=== PATIENT | female | born 1940 | race Caucasian/White ===

== ENCOUNTER → 2024-02-11 | Day surgery (SDC) | payer MEDICARE, OTHER ==
[2024-02-10 10:56] LABS: BASOPHILS # (AUTO) 0.1 (0.0-0.1); BASOPHILS % 0.6 % (0.0-1.0); EOSINOPHILS # (AUTO) 0.5 (0.0-0.4); EOSINOPHILS % 4.8 % (0.0-6.0); HEMATOCRIT 36.6 % (34.2-44.1); HEMOGLOBIN 11.5 g/dL (12.0-16.0); LYMPHOCYTES # (AUTO) 1.2 (1.0-3.2); LYMPHOCYTES % 12.7 % (18.0-39.1); MEAN CORPUSCULAR HEMOGLOBIN 28.7 pg (28-32); MEAN CORPUSCULAR HGB CONC 31.4 g/dL (31-35); MEAN CORPUSCULAR VOLUME 91.3 fL (81-99); MONOCYTES # (AUTO) 0.6 (0.2-0.8); MONOCYTES % 5.6 % (4.4-11.3); NEUTROPHILS # (AUTO) 7.4 (2.1-6.9); NEUTROPHILS % 75.7 % (38.7-80.0); PLATELET COUNT 241 x10e3/uL (140-360); RED BLOOD COUNT 4.01 x10e6/uL (3.6-5.1); RED CELL DISTRIBUTION WIDTH 14.1 % (11.7-14.4); WHITE BLOOD COUNT 9.75 x10e3/uL (4.8-10.8)
[2024-02-10 11:24] LABS: ALBUMIN 4.1 g/dL (3.5-5.0); ANION GAP 21.1 mmol/L (8-16); BILIRUBIN,TOTAL 0.4 mg/dL (0.2-1.2); CALCIUM 10.1 mg/dL (8.4-10.2); CREATININE, SERUM 1.97 mg/dL (0.57-1.11); POTASSIUM 4.1 mmol/L (3.5-5.1); TOTAL PROTEIN 8.3 g/dL (6.5-8.1)
[~2024-02-11] MED LIST: ABILIFY5 MG PO; ACETAMINOPHEN 1000 MG/100 ML 100 ML IV ONE; AMLODIPINE BESY10 MG PO; ASPIRIN81 MG PO; ATORVASTATIN CA20 MG PO; CETIRIZINE HCL10 MG PO; CIPRO250 MG PO; CLONIDINE HCL0.1 MG PO; CLOPIDOGREL75 MG PO; CYMBALTA30 MG PO; DEXAMETHASONE SOD PHOS INJ 4 MG/ML SDV ONE; DILTIAZEM 24HR180 MG PO; ECHINACEA80 MG PO; FAMOTIDINE20 MG PO; FENTANYL CITRATE/PF 100MCG/2 ML INJ ONE; FUROSEMIDE40 MG PO; GLIPIZIDE5 MG PO; LIDOCAINE HCL 2% LOCAL INJ 5 ML SDV VIAL INJ ONE; METHENAMINE HIPP1 GM PO; METOPROLOL SUCC50 MG PO; MULTI VIT PO; MULTI-VITAMIN1 EACH PO; MYRBETRIQ25 MG PO; ONDANSETRON HCL INJ 2MG/ML 2ML 2 MG/ML VIAL ONE; PANTOPRAZOLE SO20 MG PO; PRAVASTATIN SOD20 MG PO; PROPOFOL IV EMULSION 10 MG/ML 20 ML VIAL ONE; SEVOFLURANE INHAL SOLN 250 ML PEN BTL ONE; TRAMADOL HCL50 M1 PO; TRESIBA FL100 UNIT/1 SC; ULTRAM 50MG50 MG PO; VITAMIN C1000 MG PO; VITAMIN D31250 MCG PEG; Z MELATONIN PO; Z.0.ENALAPRIL MALEA2 PO; Z.0.HYDROCHLOROTHIA2 PO; Z.0.METOPROLOL TART2 PO; Z.0.METRONIDAZOLE500 PO; Z.2.METFORMIN HCL500 PO; [UNRECOGNIZED DRUG - OTHER]; [UNRECOGNIZED DRUG - OTHER] PO
[2024-02-11] MEDS: GENTAMICIN 80MG/NS 100 ML 200 ML IV ONE (06:24)
[2024-02-11] MEDS: LACTATED RINGER'S 1,000 ML ONE (06:24)
[2024-02-11] MEDS: PHENAZOPYRIDINE HCL 100 MG TAB ONE (10:39)
[2024-02-11 11:10] VITALS: BP 148/56; PULSE 71; RESP 18; O2SAT 97
== END | disposition home or self-care (01) ==
LOC: OR 05:40
PROVIDERS: ATTEND Urology
DX: N13.5 Crossing vessel and stricture of ureter without hydronephrosis (principal); N39.0 Urinary tract infection, site not specified; N13.30 Unspecified hydronephrosis; N81.10 Cystocele, unspecified; N81.6 Rectocele; N95.2 Postmenopausal atrophic vaginitis; I11.0 Hypertensive heart disease with heart failure; I50.9 Heart failure, unspecified; E11.9 Type 2 diabetes mellitus without complications; E66.01 Morbid (severe) obesity due to excess calories; Z88.6 Allergy status to analgesic agent; Z88.1 Allergy status to other antibiotic agents; Z88.0 Allergy status to penicillin; Z88.8 Allergy status to other drugs, medicaments and biological substances; Z01.810 Encounter for preprocedural cardiovascular examination; Z01.812 Encounter for preprocedural laboratory examination; Z01.818 Encounter for other preprocedural examination; Z79.02 Long term (current) use of antithrombotics/antiplatelets; Z79.82 Long term (current) use of aspirin; Z79.84 Long term (current) use of oral hypoglycemic drugs; Z79.4 Long term (current) use of insulin; Z79.899 Other long term (current) drug therapy; Z68.41 Body mass index [BMI] 40.0-44.9, adult; Z86.73 Personal history of transient ischemic attack (TIA), and cerebral infarction without residual deficits
CPT/HCPCS: 36415; 52351; 71046; 74420; 80053; 84550; 85025; 87086; 93005; C1758 ×2; C1769; J0131; J1100; J1580; J2003; J2405; J2704; J3010; J7121

== ENCOUNTER 2024-04-18 10:08 | Inpatient (IN) | payer MEDICARE ==
[~2024-04-18] VITALS: Ht 157.5 cm; Wt 91.2 kg
[~2024-04-18 10:08] MED LIST changes: -ACETAMINOPHEN 1000 MG/100 ML 100 ML IV ONE; -DEXAMETHASONE SOD PHOS INJ 4 MG/ML SDV ONE; -FENTANYL CITRATE/PF 100MCG/2 ML INJ ONE; -LIDOCAINE HCL 2% LOCAL INJ 5 ML SDV VIAL INJ ONE; -ONDANSETRON HCL INJ 2MG/ML 2ML 2 MG/ML VIAL ONE; -PROPOFOL IV EMULSION 10 MG/ML 20 ML VIAL ONE; -SEVOFLURANE INHAL SOLN 250 ML PEN BTL ONE
[2024-04-18 10:16] VITALS: TEMP 98.8
[2024-04-18 11:12] LABS: BASOPHILS % 0.3 % (0.0-1.0); EOSINOPHILS # (AUTO) 0.1 (0.0-0.4); EOSINOPHILS % 1.1 % (0.0-6.0); HEMATOCRIT 34.9 % (34.2-44.1); HEMOGLOBIN 11.4 g/dL (12.0-16.0); LYMPHOCYTES # (AUTO) 0.9 (1.0-3.2); LYMPHOCYTES % 7.5 % (18.0-39.1); MEAN CORPUSCULAR HEMOGLOBIN 29.6 pg (28-32); MEAN CORPUSCULAR HGB CONC 32.7 g/dL (31-35); MEAN CORPUSCULAR VOLUME 90.6 fL (81-99); MONOCYTES # (AUTO) 0.8 (0.2-0.8); MONOCYTES % 6.3 % (4.4-11.3); NEUTROPHILS # (AUTO) 10.4 (2.1-6.9); NEUTROPHILS % 84.4 % (38.7-80.0); PLATELET COUNT 213 x10e3/uL (140-360); RED BLOOD COUNT 3.85 x10e6/uL (3.6-5.1); RED CELL DISTRIBUTION WIDTH 15.5 % (11.7-14.4); WHITE BLOOD COUNT 12.27 x10e3/uL (4.8-10.8)
[2024-04-18] MEDS: SODIUM CHLORIDE 0.9% 1000ML 1,000 ML IV STA ×2 (11:20→12:40)
[2024-04-18] MEDS: ONDANSETRON HCL INJ 2MG/ML 2ML 2 MG/ML VIAL IV STA (11:20)
[2024-04-18 11:29] LABS: INR 1.06; PROTHROMBIN TIME 14.4 seconds (11.9-14.5)
[2024-04-18 11:30] LABS: PARTIAL THROMBOPLASTIN TIME 30.4 seconds (23.8-35.5)
[2024-04-18 11:37] LABS: ALBUMIN 3.6 g/dL (3.5-5.0); ALBUMIN/GLOBULIN RATIO 0.8 (0.8-2.0); ANION GAP 22.2 mmol/L (8-16); BILIRUBIN,TOTAL 0.7 mg/dL (0.2-1.2); CALCIUM 10.6 mg/dL (8.4-10.2); CREATININE, SERUM 1.98 mg/dL (0.57-1.11); MAGNESIUM 1.4 MG/DL (1.3-2.1); TOTAL PROTEIN 8.4 g/dL (6.5-8.1)
[2024-04-18 11:38] LABS: B-TYPE NATRIURETIC PEPTIDE2 11.7 pg/mL (0-100)
[2024-04-18 11:39] LABS: POTASSIUM 3.2 mmol/L (3.5-5.1)
[2024-04-18 11:44] LABS: TROPONIN I 0.022 ng/mL (0-0.300)
[2024-04-18 12:25] LABS: CORONAVIRUS COVID-19 AG NEGATIVE (NEGATIVE); INFLUENZA A AG NEGATIVE (NEGATIVE); INFLUENZA B AG NEGATIVE (NEGATIVE)
[2024-04-18 12:29] LABS: CLARITY,URINE CLOUDY (CLEAR); COLOR,URINE YELLOW (YELLOW); GLUCOSE, URINE NEGATIVE (NEGATIVE); KETONES,URINE NEGATIVE (NEGATIVE); LEUKOCYTE ESTERASE ,URINE SMALL (NEGATIVE); NITRITE,URINE NEGATIVE (NEGATIVE); PH,URINE 5.5 (5 - 7); PROTEIN,URINE DIPSTICK >=300 (NEGATIVE); URINE UROBILINOGEN 0.2 mg/dL (0.2 - 1)
[2024-04-18 12:30] LABS: BACTERIA,URINE MODERATE /HPF; BILIRUBIN,URINE NEGATIVE (NEGATIVE); EPITHELIAL CELLS,URINE MODERATE /LPF; RBC,URINE 21-50 /HPF (0-5); WBC,URINE (MAN) >50 /HPF (0-5)
[2024-04-18] MEDS ORDERED: LEVOFLOXACIN 250MG/D5W 50ML 50 ML IV SCH (12:30)
[2024-04-18] MEDS: MEROPENEM 1 GM in SODIUM CHLORIDE 0.9% 100 ML IV ONE (12:40)
[2024-04-18 12:57] VITALS: PULSE 109; RESP 16
[2024-04-18] MEDS: SODIUM CHLORIDE 0.9% 1000ML 1,000 ML IV SCH (14:26)
[2024-04-18 18:00] VITALS: BP_SYST 147; BP_SYST 148; BP_DIAS 68; PULSE 118; RESP 20; TEMP 97.6; O2SAT 93; O2SAT 94
[2024-04-18 20:42] VITALS: BP 156/69; PULSE 116; RESP 20; TEMP 99; O2SAT 97
[2024-04-18] MEDS: LEVOFLOXACIN 250MG/D5W 50ML 50 ML IV SCH (21:01)
[2024-04-18] MEDS ORDERED: NITROFURANTOIN50 MG PO (23:29)
[2024-04-18] MEDS ORDERED: ALLOPURINOL100 MG PO (23:29)
[2024-04-18] MEDS ORDERED: METOPROLOL SUCC50 MG PO (23:29)
[2024-04-19] VITALS (8 sets, daily range): BP systolic 105–156; BP diastolic 55–69; PULSE 67–127; RESP 16–20; TEMP 97.5–99.3; O2SAT 96–98
[2024-04-19] MEDS: AMLODIPINE BESYLATE 10 MG TAB PO SCH (02:11)
[2024-04-19] MEDS: CLONIDINE HCL 0.1 MG TAB PO SCH (02:12)
[2024-04-19] MEDS: METOPROLOL SUCCINATE 50 MG TAB XL PO ONE (02:13)
[2024-04-19 06:36] LABS: BASOPHILS % 0.4 % (0.0-1.0); EOSINOPHILS # (AUTO) 0.1 (0.0-0.4); EOSINOPHILS % 1.3 % (0.0-6.0); HEMATOCRIT 31.2 % (34.2-44.1); HEMOGLOBIN 9.8 g/dL (12.0-16.0); LYMPHOCYTES % 13.5 % (18.0-39.1); MEAN CORPUSCULAR HEMOGLOBIN 30.2 pg (28-32); MEAN CORPUSCULAR HGB CONC 31.4 g/dL (31-35); MONOCYTES # (AUTO) 0.7 (0.2-0.8); MONOCYTES % 9.6 % (4.4-11.3); NEUTROPHILS # (AUTO) 5.7 (2.1-6.9); NEUTROPHILS % 74.7 % (38.7-80.0); PLATELET COUNT 163 x10e3/uL (140-360); RED BLOOD COUNT 3.25 x10e6/uL (3.6-5.1); RED CELL DISTRIBUTION WIDTH 15.2 % (11.7-14.4); WHITE BLOOD COUNT 7.57 x10e3/uL (4.8-10.8)
[2024-04-19 07:21] LABS: ALBUMIN 2.6 g/dL (3.5-5.0); ALBUMIN/GLOBULIN RATIO 0.7 (0.8-2.0); ANION GAP 16.4 mmol/L (8-16); BILIRUBIN,TOTAL 0.4 mg/dL (0.2-1.2); CALCIUM 9.5 mg/dL (8.4-10.2); CREATININE, SERUM 1.45 mg/dL (0.57-1.11); TOTAL PROTEIN 6.4 g/dL (6.5-8.1)
[2024-04-19 07:22] LABS: POTASSIUM 3.4 mmol/L (3.5-5.1)
[2024-04-19] MEDS: GLIPIZIDE 5 MG TAB PO SCH (08:44)
[2024-04-19] MEDS: CLOPIDOGREL BISULFATE 75 MG TAB PO SCH (08:44)
[2024-04-19] MEDS: DULOXETINE HCL 30 MG DELAYED RELEASE PO SCH (08:44)
[2024-04-19] MEDS: ALLOPURINOL 100 MG TAB PO SCH (08:44)
[2024-04-19] MEDS: HYDROCHLOROTHIAZIDE 25 MG TAB PO SCH (08:44)
[2024-04-19] MEDS: LORATADINE 10 MG TAB PO SCH (08:45)
[2024-04-19] MEDS: FUROSEMIDE 40 MG TAB PO SCH (08:47)
[2024-04-19] MEDS ORDERED: FAMOTIDINE 20 MG TAB PO SCH (09:00)
[2024-04-19] MEDS ORDERED: NITROFURANTOIN 50 MG CAP PO SCH (09:00)
[2024-04-19] MEDS: INSULIN DEGLUDEC 35 UNIT SQ SCH (09:00)
[2024-04-19] MEDS: NON-FORMULARY MEDICATION (Mirabegron (Myrbetriq) 50 MG) PO SCH (09:00)
[2024-04-19] MEDS ORDERED: PANTOPRAZOLE SODIUM 20 MG TABLET.DR PO SCH (09:00)
[2024-04-19] MEDS ORDERED: DEXTROSE 50% SYRINGE 50 ML IV PRN (11:00)
[2024-04-19 11:24] LABS: CHOL/HDL RATIO 2.8 (3.0-3.6)
[2024-04-19] MEDS: FAMOTIDINE 20 MG TAB PO SCH (11:33)
[2024-04-19] MEDS: INSULIN REGULAR, HUMAN 100 UNIT/1 ML SQ SCH (12:24)
[2024-04-19] MEDS: LEVOFLOXACIN 250MG/D5W 50ML 50 ML IV SCH (20:39)
[2024-04-19] MEDS: METOPROLOL SUCCINATE 50 MG TAB XL PO SCH (20:43)
[2024-04-19] MEDS: ATORVASTATIN 40 MG TAB PO SCH (20:44)
[2024-04-19] MEDS: TRAMADOL HCL 50 MG TAB PO PRN (20:45)
[2024-04-19] MEDS: TRAMADOL HCL 50 MG TAB PO ONE (23:53)
[2024-04-20] VITALS: BP 126/56; PULSE 78; RESP 20; TEMP 99.1; O2SAT 99
[2024-04-20 04:00] VITALS: BP 131/61; PULSE 92; RESP 20; TEMP 99.7; O2SAT 97
[2024-04-20] MEDS: TRAMADOL HCL 50 MG TAB PO PRN (05:42)
[2024-04-20 06:42] LABS: BASOPHILS % 0.3 % (0.0-1.0); EOSINOPHILS # (AUTO) 0.2 (0.0-0.4); EOSINOPHILS % 2.6 % (0.0-6.0); HEMATOCRIT 28.5 % (34.2-44.1); HEMOGLOBIN 9.1 g/dL (12.0-16.0); LYMPHOCYTES % 11.1 % (18.0-39.1); MEAN CORPUSCULAR HEMOGLOBIN 29.8 pg (28-32); MEAN CORPUSCULAR HGB CONC 31.9 g/dL (31-35); MEAN CORPUSCULAR VOLUME 93.4 fL (81-99); MONOCYTES # (AUTO) 0.8 (0.2-0.8); NEUTROPHILS # (AUTO) 7.3 (2.1-6.9); NEUTROPHILS % 77.4 % (38.7-80.0); PLATELET COUNT 168 x10e3/uL (140-360); RED BLOOD COUNT 3.05 x10e6/uL (3.6-5.1); RED CELL DISTRIBUTION WIDTH 14.9 % (11.7-14.4); WHITE BLOOD COUNT 9.38 x10e3/uL (4.8-10.8)
[2024-04-20 07:18] LABS: ANION GAP 15.2 mmol/L (8-16); CALCIUM 9.1 mg/dL (8.4-10.2); CREATININE, SERUM 1.38 mg/dL (0.57-1.11)
[2024-04-20 07:21] LABS: POTASSIUM 3.2 mmol/L (3.5-5.1)
[2024-04-20 08:04] VITALS: BP 135/55; PULSE 91; RESP 18; TEMP 97.9; O2SAT 95
[2024-04-20 08:13] VITALS: BP 135/55; PULSE 91; RESP 18; TEMP 97.9; O2SAT 95
[2024-04-20 11:43] VITALS: BP 135/61; PULSE 75; RESP 16; TEMP 98.8; O2SAT 100
[2024-04-20] MEDS: CYCLOBENZAPRINE HCL 10 MG TAB PO SCH (13:48)
[2024-04-20] MEDS ORDERED: FUROSEMIDE INJ 10 MG/ML 4 ML VIAL ONE (15:21)
[2024-04-20 20:00] VITALS: BP 143/51; PULSE 86; RESP 18; TEMP 98.9; O2SAT 95
[2024-04-20] MEDS: METOPROLOL SUCCINATE 50 MG TAB XL PO SCH (21:03)
[2024-04-21 04:00] VITALS: BP 143/57; PULSE 92; RESP 18; TEMP 97.1; O2SAT 100
[2024-04-21 06:31] LABS: BASOPHILS % 0.2 % (0.0-1.0); EOSINOPHILS # (AUTO) 0.2 (0.0-0.4); HEMATOCRIT 28.3 % (34.2-44.1); HEMOGLOBIN 9.2 g/dL (12.0-16.0); LYMPHOCYTES # (AUTO) 1.1 (1.0-3.2); LYMPHOCYTES % 13.7 % (18.0-39.1); MEAN CORPUSCULAR HEMOGLOBIN 29.4 pg (28-32); MEAN CORPUSCULAR HGB CONC 32.5 g/dL (31-35); MEAN CORPUSCULAR VOLUME 90.4 fL (81-99); MONOCYTES # (AUTO) 0.6 (0.2-0.8); MONOCYTES % 7.6 % (4.4-11.3); NEUTROPHILS % 74.8 % (38.7-80.0); PLATELET COUNT 171 x10e3/uL (140-360); RED BLOOD COUNT 3.13 x10e6/uL (3.6-5.1); RED CELL DISTRIBUTION WIDTH 14.6 % (11.7-14.4); WHITE BLOOD COUNT 8.05 x10e3/uL (4.8-10.8)
[2024-04-21 07:01] LABS: ANION GAP 18.1 mmol/L (8-16); CALCIUM 9.3 mg/dL (8.4-10.2); CREATININE, SERUM 1.41 mg/dL (0.57-1.11)
[2024-04-21 07:04] LABS: POTASSIUM 3.1 mmol/L (3.5-5.1)
[2024-04-21] MEDS: SODIUM CHLORIDE 0.45% 1,000 ML IV SCH (09:00)
[2024-04-21 10:08] VITALS: BP 143/57; PULSE 80; RESP 16; TEMP 98.2; O2SAT 95
[2024-04-21 19:09] VITALS: BP 122/58; PULSE 88; RESP 16; TEMP 99.3; O2SAT 98
[2024-04-21 20:24] VITALS: BP 141/60; PULSE 98; RESP 18; TEMP 99.3; O2SAT 100
[2024-04-21 21:00] VITALS: BP 141/60; PULSE 98; RESP 18; TEMP 99.3; O2SAT 100
[2024-04-21] MEDS: ONDANSETRON HCL INJ 2MG/ML 2ML 2 MG/ML VIAL IV PRN (23:50)
[2024-04-22] VITALS (7 sets, daily range): BP systolic 124–149; BP diastolic 53–74; PULSE 80–97; RESP 17–20; TEMP 97.5–99.4; O2SAT 95–99
[2024-04-22 08:36] LABS: CALCIUM 9.5 mg/dL (8.4-10.2); CREATININE, SERUM 1.63 mg/dL (0.57-1.11)
[2024-04-22] MEDS ORDERED: LEVOFLOXACIN250 MG PO (11:23)
[2024-04-22] MEDS ORDERED: TOPROL XL50 MG PO (11:23)
[2024-04-22] MEDS ORDERED: CYCLOBENZAPRINE10 MG PO (11:23)
[2024-04-22] MEDS ORDERED: FAMOTIDINE20 MG PO (11:23)
[2024-04-22] MEDS: POTASSIUM CHLORIDE 20 MEQ TAB CR PO STA (11:49)
[2024-04-23] VITALS (8 sets, daily range): BP systolic 116–141; BP diastolic 53–77; PULSE 87–97; RESP 16–22; TEMP 99–99.4; O2SAT 95–100
[2024-04-23 06:58] LABS: CALCIUM 9.3 mg/dL (8.4-10.2); CREATININE, SERUM 1.66 mg/dL (0.57-1.11)
[2024-04-23 07:02] LABS: POTASSIUM 3.3 mmol/L (3.5-5.1)
[2024-04-23] MEDS: SENNOSIDES 8.6 MG TAB PO SCH (07:11)
[2024-04-23] MEDS: DOCUSATE SODIUM 100 MG CAP PO SCH (07:11)
[2024-04-23 07:21] LABS: ANION GAP 17.3 mmol/L (8-16)
[2024-04-23 19:58] LABS: BASOPHILS % 0.2 % (0.0-1.0); EOSINOPHILS # (AUTO) 0.2 (0.0-0.4); EOSINOPHILS % 1.9 % (0.0-6.0); LYMPHOCYTES # (AUTO) 0.6 (1.0-3.2); MEAN CORPUSCULAR HEMOGLOBIN 29.9 pg (28-32); MEAN CORPUSCULAR HGB CONC 33.3 g/dL (31-35); MEAN CORPUSCULAR VOLUME 89.6 fL (81-99); MONOCYTES # (AUTO) 0.7 (0.2-0.8); MONOCYTES % 6.3 % (4.4-11.3); NEUTROPHILS # (AUTO) 9.7 (2.1-6.9); NEUTROPHILS % 85.7 % (38.7-80.0); PLATELET COUNT 186 x10e3/uL (140-360); RED BLOOD COUNT 2.68 x10e6/uL (3.6-5.1); RED CELL DISTRIBUTION WIDTH 14.4 % (11.7-14.4); WHITE BLOOD COUNT 11.35 x10e3/uL (4.8-10.8)
[2024-04-23 19:59] LABS: BILIRUBIN,URINE NEGATIVE (NEGATIVE); CLARITY,URINE CLEAR (CLEAR); COLOR,URINE STRAW (YELLOW); GLUCOSE, URINE NEGATIVE (NEGATIVE); KETONES,URINE NEGATIVE (NEGATIVE); LEUKOCYTE ESTERASE ,URINE NEGATIVE (NEGATIVE); NITRITE,URINE NEGATIVE (NEGATIVE); PH,URINE 5.5 (5 - 7); PROTEIN,URINE DIPSTICK 2+ (NEGATIVE); URINE UROBILINOGEN 0.2 mg/dL (0.2 - 1)
[2024-04-23 20:19] LABS: ANION GAP 15.2 mmol/L (8-16); CREATININE, SERUM 1.68 mg/dL (0.57-1.11)
[2024-04-23 20:21] LABS: POTASSIUM 3.2 mmol/L (3.5-5.1)
[2024-04-23 20:26] LABS: EPITHELIAL CELLS,URINE FEW /LPF; HYALINE CASTS 0-1 (0-1); WBC,URINE (MAN) 0-5 /HPF (0-5)
[2024-04-23] MEDS ORDERED: LORAZEPAM INJ 2 MG/ML VIAL IV PRN (21:00)
[2024-04-24] VITALS (7 sets, daily range): BP systolic 111–145; BP diastolic 46–98; PULSE 83–95; RESP 18–21; TEMP 98.6–99.5; O2SAT 95–100
[2024-04-24 06:53] LABS: HEMATOCRIT 24.4 % (34.2-44.1)
[2024-04-24] MEDS: ACETAMINOPHEN 325 MG TAB PO PRN (16:57)
[2024-04-25] VITALS (7 sets, daily range): BP systolic 128–158; BP diastolic 58–115; PULSE 88–103; RESP 18–20; TEMP 97.3–100.1; O2SAT 96–99
[2024-04-25 06:57] LABS: BASOPHILS % 0.3 % (0.0-1.0); EOSINOPHILS # (AUTO) 0.2 (0.0-0.4); EOSINOPHILS % 1.4 % (0.0-6.0); HEMATOCRIT 27.2 % (34.2-44.1); LYMPHOCYTES # (AUTO) 0.5 (1.0-3.2); LYMPHOCYTES % 4.9 % (18.0-39.1); MEAN CORPUSCULAR HEMOGLOBIN 29.7 pg (28-32); MEAN CORPUSCULAR HGB CONC 33.1 g/dL (31-35); MEAN CORPUSCULAR VOLUME 89.8 fL (81-99); MONOCYTES # (AUTO) 0.8 (0.2-0.8); MONOCYTES % 6.9 % (4.4-11.3); NEUTROPHILS # (AUTO) 9.4 (2.1-6.9); PLATELET COUNT 261 x10e3/uL (140-360); RED BLOOD COUNT 3.03 x10e6/uL (3.6-5.1); RED CELL DISTRIBUTION WIDTH 14.2 % (11.7-14.4)
[2024-04-25 07:28] LABS: ANION GAP 16.9 mmol/L (8-16); CALCIUM 9.7 mg/dL (8.4-10.2); CREATININE, SERUM 1.5 mg/dL (0.57-1.11)
[2024-04-25 07:29] LABS: POTASSIUM 2.9 mmol/L (3.5-5.1)
[2024-04-25] MEDS: DULOXETINE HCL 30 MG DELAYED RELEASE PO SCH (10:34)
[2024-04-25] MEDS: POTASSIUM CHLORIDE 10MEQ EA PO ONE (11:01)
[2024-04-25] MEDS: QUETIAPINE FUMARATE 25 MG TAB PO SCH ×2 (11:01→21:21)
[2024-04-25] MEDS: MECLIZINE HCL 12.5 MG TAB PO SCH (21:22)
[2024-04-25] MEDS: TEMAZEPAM 15 MG CAP PO SCH (21:23)
[2024-04-26] VITALS: BP 149/58; PULSE 87; RESP 18; TEMP 97.9; O2SAT 95
[2024-04-26 04:00] VITALS: BP 137/89; PULSE 75; RESP 18; TEMP 98; O2SAT 96
[2024-04-26 06:42] LABS: BASOPHILS % 0.3 % (0.0-1.0); EOSINOPHILS # (AUTO) 0.2 (0.0-0.4); EOSINOPHILS % 2.3 % (0.0-6.0); HEMATOCRIT 26.2 % (34.2-44.1); HEMOGLOBIN 8.6 g/dL (12.0-16.0); LYMPHOCYTES # (AUTO) 0.9 (1.0-3.2); LYMPHOCYTES % 11.4 % (18.0-39.1); MEAN CORPUSCULAR HGB CONC 32.8 g/dL (31-35); MEAN CORPUSCULAR VOLUME 88.2 fL (81-99); MONOCYTES # (AUTO) 0.6 (0.2-0.8); MONOCYTES % 7.4 % (4.4-11.3); NEUTROPHILS % 77.2 % (38.7-80.0); PLATELET COUNT 269 x10e3/uL (140-360); RED BLOOD COUNT 2.97 x10e6/uL (3.6-5.1); RED CELL DISTRIBUTION WIDTH 14.5 % (11.7-14.4); WHITE BLOOD COUNT 7.79 x10e3/uL (4.8-10.8)
[2024-04-26 07:05] LABS: CALCIUM 9.9 mg/dL (8.4-10.2); CREATININE, SERUM 1.55 mg/dL (0.57-1.11)
[2024-04-26] MEDS ORDERED: SEROQUEL25 MG PO (07:45)
[2024-04-26] MEDS ORDERED: RESTORIL15 MG PO (07:45)
[2024-04-26] MEDS: QUETIAPINE FUMARATE 25 MG TAB PO SCH (09:00)
[2024-04-26 09:01] VITALS: BP 153/56; PULSE 99; RESP 20; TEMP 98.4; O2SAT 97
[2024-04-26] MEDS: PANTOPRAZOLE SOD 40 MG TABEC PO SCH (09:08)
[2024-04-26] MEDS: POTASSIUM CHLORIDE 10MEQ EA PO ONE (09:10)
[2024-04-26] MEDS ORDERED: ONDANSETRON HCL 4 MG ORAL DISINTEGRATING TAB PO PRN (10:00)
[2024-04-26 12:43] VITALS: BP 129/60; PULSE 92; RESP 18; TEMP 98.3; O2SAT 96
[2024-04-26 12:53] VITALS: BP 129/60; PULSE 92; RESP 18; TEMP 98.3; O2SAT 96
== END 2024-04-26 12:53 | DRG 698 ==
LOC: ER 10:12 → ERHOLD 13:35 → MED/SURG3 17:29
PROVIDERS: ADMIT Internal Medicine; ATTEND Internal Medicine
PROC: 3E0333Z Introduction of Anti-inflammatory into Peripheral Vein, Percutaneous Approach (ICD-10-PCS; principal; 2024-04-18)
DX: T83.593A Infection and inflammatory reaction due to other urinary stents, initial encounter (principal); A41.9 Sepsis, unspecified organism; R65.20 Severe sepsis without septic shock; G93.41 Metabolic encephalopathy; N17.9 Acute kidney failure, unspecified; N12 Tubulo-interstitial nephritis, not specified as acute or chronic; Z16.24 Resistance to multiple antibiotics; E11.22 Type 2 diabetes mellitus with diabetic chronic kidney disease; N18.30 Chronic kidney disease, stage 3 unspecified; N30.90 Cystitis, unspecified without hematuria; Z11.52 Encounter for screening for COVID-19; K59.00 Constipation, unspecified; R44.1 Visual hallucinations; N13.5 Crossing vessel and stricture of ureter without hydronephrosis; H81.10 Benign paroxysmal vertigo, unspecified ear; G47.00 Insomnia, unspecified; I12.9 Hypertensive chronic kidney disease with stage 1 through stage 4 chronic kidney disease, or unspecified chronic kidney disease; F32.A Depression, unspecified; M79.7 Fibromyalgia; Z98.62 Peripheral vascular angioplasty status; R53.81 Other malaise; R31.29 Other microscopic hematuria; B95.2 Enterococcus as the cause of diseases classified elsewhere; B96.1 Klebsiella pneumoniae [K. pneumoniae] as the cause of diseases classified elsewhere; E66.01 Morbid (severe) obesity due to excess calories; Z68.36 Body mass index [BMI] 36.0-36.9, adult; Z79.82 Long term (current) use of aspirin; Z79.4 Long term (current) use of insulin; Z79.02 Long term (current) use of antithrombotics/antiplatelets; Z79.84 Long term (current) use of oral hypoglycemic drugs; Z90.49 Acquired absence of other specified parts of digestive tract; Z90.710 Acquired absence of both cervix and uterus; Z96.0 Presence of urogenital implants; Z86.73 Personal history of transient ischemic attack (TIA), and cerebral infarction without residual deficits; Z88.0 Allergy status to penicillin; Z88.1 Allergy status to other antibiotic agents; Z88.5 Allergy status to narcotic agent; Z88.8 Allergy status to other drugs, medicaments and biological substances; Z91.018 Allergy to other foods; Z91.048 Other nonmedicinal substance allergy status; Z87.891 Personal history of nicotine dependence
CPT/HCPCS: 36415; 51700; 70450; 71045; 74176; 78708; 80048; 80053; 80061; 81001; 82140; 82550; 82948; 83036; 83605; 83735; 83880; 84484; 85014; 85018; 85025; 85610; 85730; 87040; 87086; 93005; 96372; 99252; 99284; A9562; J1940; J1956; J2185; J2405; J2470; J7030; J7050

== ENCOUNTER 2024-05-09 08:34 | Inpatient (IN) | payer MEDICARE ==
[~2024-05-09] VITALS: Ht 157.5 cm; Wt 91.2 kg
[~2024-05-09 08:34] MED LIST changes: +ALLOPURINOL100 MG PO; +CYCLOBENZAPRINE10 MG PO; +LEVOFLOXACIN250 MG PO; +NITROFURANTOIN50 MG PO; +RESTORIL15 MG PO; +SEROQUEL25 MG PO; +TOPROL XL50 MG PO
[2024-05-09 09:16] VITALS: PULSE 106; RESP 18; TEMP 98.9
[2024-05-09 09:34] LABS: BASOPHILS # (AUTO) 0.1 (0.0-0.1); BASOPHILS % 0.5 % (0.0-1.0); EOSINOPHILS # (AUTO) 0.2 (0.0-0.4); EOSINOPHILS % 2.1 % (0.0-6.0); HEMATOCRIT 34.3 % (34.2-44.1); HEMOGLOBIN 10.8 g/dL (12.0-16.0); LYMPHOCYTES % 8.9 % (18.0-39.1); MEAN CORPUSCULAR HEMOGLOBIN 29.5 pg (28-32); MEAN CORPUSCULAR HGB CONC 31.5 g/dL (31-35); MEAN CORPUSCULAR VOLUME 93.7 fL (81-99); MONOCYTES # (AUTO) 0.6 (0.2-0.8); MONOCYTES % 5.5 % (4.4-11.3); NEUTROPHILS # (AUTO) 9.5 (2.1-6.9); NEUTROPHILS % 82.5 % (38.7-80.0); PLATELET COUNT 297 x10e3/uL (140-360); RED BLOOD COUNT 3.66 x10e6/uL (3.6-5.1); RED CELL DISTRIBUTION WIDTH 15.2 % (11.7-14.4); WHITE BLOOD COUNT 11.48 x10e3/uL (4.8-10.8)
[2024-05-09 09:44] LABS: INR 0.96; PARTIAL THROMBOPLASTIN TIME 28.5 seconds (23.8-35.5); PROTHROMBIN TIME 13.4 seconds (11.9-14.5)
[2024-05-09 09:51] LABS: ALBUMIN 3.4 g/dL (3.5-5.0); ALBUMIN/GLOBULIN RATIO 0.8 (0.8-2.0); ANION GAP 19.4 mmol/L (8-16); BILIRUBIN,TOTAL 0.4 mg/dL (0.2-1.2); CALCIUM 9.9 mg/dL (8.4-10.2); CREATININE, SERUM 1.85 mg/dL (0.57-1.11); TOTAL PROTEIN 7.6 g/dL (6.5-8.1)
[2024-05-09 09:53] LABS: POTASSIUM 3.4 mmol/L (3.5-5.1)
[2024-05-09] MEDS: SODIUM CHLORIDE 0.9% 500ML 500 ML IV ONE (10:09)
[2024-05-09] MEDS: MAGNESIUM SULFATE 2GM/50ML 50 ML IV ONE (10:09)
[2024-05-09] MEDS: ONDANSETRON HCL INJ 2MG/ML 2ML 2 MG/ML VIAL IV STA (10:09)
[2024-05-09 10:11] LABS: TROPONIN I 0.029 ng/mL (0-0.300)
[2024-05-09 10:32] LABS: BILIRUBIN,URINE NEGATIVE (NEGATIVE); CLARITY,URINE CLOUDY (CLEAR); COLOR,URINE YELLOW (YELLOW); GLUCOSE, URINE NEGATIVE (NEGATIVE); KETONES,URINE NEGATIVE (NEGATIVE); LEUKOCYTE ESTERASE ,URINE MODERATE (NEGATIVE); NITRITE,URINE NEGATIVE (NEGATIVE); PH,URINE 6.5 (5 - 7); PROTEIN,URINE DIPSTICK >=300 (NEGATIVE); URINE UROBILINOGEN 0.2 mg/dL (0.2 - 1)
[2024-05-09] MEDS ORDERED: MEROPENEM 1 GM in SODIUM CHLORIDE 0.9% 100 ML IV SCH (10:45)
[2024-05-09 11:07] LABS: WBC,URINE (MAN) >50 /HPF (0-5)
[2024-05-09 11:08] LABS: BACTERIA,URINE MANY /HPF; EPITHELIAL CELLS,URINE FEW /LPF
[2024-05-09] MEDS: DEXTROSE 5%/0.45% SOD CHL 1,000 ML IV SCH (11:15)
[2024-05-09] MEDS: SODIUM CHLORIDE 0.9% 1000ML 1,000 ML IV ONE (12:15)
[2024-05-09] MEDS: MEROPENEM 1 GM in SODIUM CHLORIDE 0.9% 100 ML IV SCH (12:16)
[2024-05-09 16:40] VITALS: BP 178/74; PULSE 100; RESP 17; TEMP 98.7; O2SAT 98
[2024-05-09 18:16] VITALS: BP 178/74; PULSE 100; RESP 17; TEMP 98.7; O2SAT 98
[2024-05-09 20:00] VITALS: BP 154/69; PULSE 122; RESP 18; TEMP 98.1; O2SAT 97
[2024-05-09 21:00] VITALS: BP 154/69; PULSE 122; RESP 18; TEMP 98.1; O2SAT 97
[2024-05-09] MEDS: METOPROLOL SUCCINATE 50 MG TAB XL PO SCH (21:32)
[2024-05-10] VITALS (10 sets, daily range): BP systolic 133–161; BP diastolic 55–77; PULSE 88–108; RESP 18–20; TEMP 97–99; O2SAT 95–98
[2024-05-10] MEDS ORDERED: DEXTROSE 50% SYRINGE 50 ML IV PRN (00:15)
[2024-05-10] MEDS ORDERED: METOPROLOL TARTRATE INJ 1 MG/ML VIAL IV PRN (00:15)
[2024-05-10] MEDS ORDERED: TRAMADOL HCL 50 MG TAB PO SCH (00:15)
[2024-05-10] MEDS ORDERED: DOCUSATE SODIUM 100 MG CAP PO PRN (00:15)
[2024-05-10] MEDS ORDERED: ACETAMINOPHEN 325 MG TAB PO PRN (00:15)
[2024-05-10] MEDS ORDERED: MELATONIN 3 MG TAB PO PRN (00:15)
[2024-05-10 06:33] LABS: BASOPHILS % 0.4 % (0.0-1.0); EOSINOPHILS # (AUTO) 0.1 (0.0-0.4); EOSINOPHILS % 1.4 % (0.0-6.0); HEMOGLOBIN 9.7 g/dL (12.0-16.0); LYMPHOCYTES # (AUTO) 0.8 (1.0-3.2); LYMPHOCYTES % 10.3 % (18.0-39.1); MEAN CORPUSCULAR HEMOGLOBIN 29.1 pg (28-32); MEAN CORPUSCULAR HGB CONC 31.3 g/dL (31-35); MEAN CORPUSCULAR VOLUME 93.1 fL (81-99); MONOCYTES # (AUTO) 0.6 (0.2-0.8); MONOCYTES % 7.4 % (4.4-11.3); NEUTROPHILS # (AUTO) 6.3 (2.1-6.9); NEUTROPHILS % 80.1 % (38.7-80.0); PLATELET COUNT 216 x10e3/uL (140-360); RED BLOOD COUNT 3.33 x10e6/uL (3.6-5.1); RED CELL DISTRIBUTION WIDTH 15.4 % (11.7-14.4); WHITE BLOOD COUNT 7.87 x10e3/uL (4.8-10.8)
[2024-05-10 06:59] LABS: ALBUMIN 2.7 g/dL (3.5-5.0); ALBUMIN/GLOBULIN RATIO 0.7 (0.8-2.0); ANION GAP 15.5 mmol/L (8-16); BILIRUBIN,TOTAL 0.6 mg/dL (0.2-1.2); CALCIUM 9.1 mg/dL (8.4-10.2); CREATININE, SERUM 1.45 mg/dL (0.57-1.11); POTASSIUM 3.5 mmol/L (3.5-5.1); TOTAL PROTEIN 6.4 g/dL (6.5-8.1)
[2024-05-10] MEDS: ALLOPURINOL 100 MG TAB PO SCH (08:43)
[2024-05-10] MEDS: DULOXETINE HCL 30 MG DELAYED RELEASE PO SCH (08:43)
[2024-05-10] MEDS: FAMOTIDINE 20 MG TAB PO SCH (08:43)
[2024-05-10] MEDS: INSULIN REGULAR, HUMAN 100 UNIT/1 ML SQ SCH (08:51)
[2024-05-10] MEDS: HEPARIN SOD (PORCINE) 5,000 UNIT/ML VIAL SC SCH (08:51)
[2024-05-10] MEDS: CLOPIDOGREL BISULFATE 75 MG TAB PO SCH (10:46)
[2024-05-10] MEDS: MAGNESIUM SULFATE 2GM/50ML 50 ML IV ONE (12:04)
[2024-05-10] MEDS: TEMAZEPAM 15 MG CAP PO SCH (20:34)
[2024-05-10] MEDS: AMLODIPINE BESYLATE 10 MG TAB PO SCH (20:34)
[2024-05-10] MEDS: ATORVASTATIN 20 MG TAB PO SCH (20:34)
[2024-05-10] MEDS: MAGNESIUM SULFATE 2GM/50ML IV ONE (23:52)
[2024-05-11] VITALS (9 sets, daily range): BP systolic 126–164; BP diastolic 58–78; PULSE 78–101; RESP 18–20; TEMP 97.7–98.4; O2SAT 94–99
[2024-05-11 06:47] LABS: BASOPHILS % 0.7 % (0.0-1.0); EOSINOPHILS # (AUTO) 0.4 (0.0-0.4); EOSINOPHILS % 5.7 % (0.0-6.0); HEMATOCRIT 33.3 % (34.2-44.1); HEMOGLOBIN 10.5 g/dL (12.0-16.0); LYMPHOCYTES % 16.6 % (18.0-39.1); MEAN CORPUSCULAR HEMOGLOBIN 29.5 pg (28-32); MEAN CORPUSCULAR HGB CONC 31.5 g/dL (31-35); MEAN CORPUSCULAR VOLUME 93.5 fL (81-99); MONOCYTES # (AUTO) 0.4 (0.2-0.8); MONOCYTES % 6.4 % (4.4-11.3); NEUTROPHILS # (AUTO) 4.3 (2.1-6.9); NEUTROPHILS % 70.3 % (38.7-80.0); PLATELET COUNT 235 x10e3/uL (140-360); RED BLOOD COUNT 3.56 x10e6/uL (3.6-5.1); RED CELL DISTRIBUTION WIDTH 15.1 % (11.7-14.4); WHITE BLOOD COUNT 6.13 x10e3/uL (4.8-10.8)
[2024-05-11 07:09] LABS: ANION GAP 16.9 mmol/L (8-16); CALCIUM 9.7 mg/dL (8.4-10.2); CREATININE, SERUM 1.29 mg/dL (0.57-1.11); POTASSIUM 3.9 mmol/L (3.5-5.1)
[2024-05-12] VITALS (11 sets, daily range): BP systolic 145–166; BP diastolic 58–83; PULSE 74–89; RESP 18–22; TEMP 97.3–98; O2SAT 96–98
[2024-05-12 06:44] LABS: BASOPHILS % 0.8 % (0.0-1.0); EOSINOPHILS # (AUTO) 0.4 (0.0-0.4); EOSINOPHILS % 7.4 % (0.0-6.0); HEMATOCRIT 30.7 % (34.2-44.1); HEMOGLOBIN 9.8 g/dL (12.0-16.0); LYMPHOCYTES # (AUTO) 1.2 (1.0-3.2); LYMPHOCYTES % 24.5 % (18.0-39.1); MEAN CORPUSCULAR HEMOGLOBIN 29.3 pg (28-32); MEAN CORPUSCULAR HGB CONC 31.9 g/dL (31-35); MEAN CORPUSCULAR VOLUME 91.6 fL (81-99); MONOCYTES # (AUTO) 0.4 (0.2-0.8); NEUTROPHILS # (AUTO) 2.9 (2.1-6.9); NEUTROPHILS % 58.9 % (38.7-80.0); PLATELET COUNT 209 x10e3/uL (140-360); RED BLOOD COUNT 3.35 x10e6/uL (3.6-5.1); WHITE BLOOD COUNT 4.97 x10e3/uL (4.8-10.8)
[2024-05-12 07:09] LABS: CALCIUM 9.3 mg/dL (8.4-10.2); CREATININE, SERUM 1.08 mg/dL (0.57-1.11)
[2024-05-12] MEDS ORDERED: LIDOCAINE HCL 2% LOCAL INJ 5 ML SDV VIAL INJ ONE (13:29)
[2024-05-12] MEDS ORDERED: ONDANSETRON HCL INJ 2MG/ML 2ML 2 MG/ML VIAL ONE (13:29)
[2024-05-12] MEDS ORDERED: PROPOFOL IV EMULSION 10 MG/ML 20 ML VIAL ONE (13:29)
[2024-05-12] MEDS ORDERED: DEXAMETHASONE SOD PHOS INJ 4 MG/ML SDV ONE (13:29)
[2024-05-12] MEDS ORDERED: SEVOFLURANE INHAL SOLN 250 ML PEN BTL ONE (13:29)
[2024-05-12] MEDS ORDERED: ACETAMINOPHEN 1000 MG/100 ML 100 ML IV ONE (15:12)
[2024-05-12] MEDS: TRAMADOL HCL 50 MG TAB PO PRN (21:00)
[2024-05-13] VITALS (10 sets, daily range): BP systolic 129–193; BP diastolic 55–93; PULSE 68–94; RESP 18–20; TEMP 97.6–98.1; O2SAT 89–100
[2024-05-13 08:30] LABS: ALBUMIN 2.9 g/dL (3.5-5.0); ALBUMIN/GLOBULIN RATIO 0.8 (0.8-2.0); ANION GAP 16.6 mmol/L (8-16); BILIRUBIN,TOTAL 0.3 mg/dL (0.2-1.2); CREATININE, SERUM 1.32 mg/dL (0.57-1.11); POTASSIUM 4.6 mmol/L (3.5-5.1); TOTAL PROTEIN 6.6 g/dL (6.5-8.1)
[2024-05-14] VITALS (10 sets, daily range): BP systolic 145–165; BP diastolic 39–68; PULSE 65–95; RESP 17–18; TEMP 97.7–98.2; O2SAT 95–100
[2024-05-15] VITALS (11 sets, daily range): BP systolic 156–174; BP diastolic 42–81; PULSE 60–79; RESP 16–19; TEMP 97.2–98.1; O2SAT 95–100
[2024-05-15 13:26] LABS: ALBUMIN 3.1 g/dL (3.5-5.0); ALBUMIN/GLOBULIN RATIO 0.8 (0.8-2.0); ANION GAP 15.3 mmol/L (8-16); BILIRUBIN,TOTAL 0.4 mg/dL (0.2-1.2); CALCIUM 10.2 mg/dL (8.4-10.2); CREATININE, SERUM 1.08 mg/dL (0.57-1.11); POTASSIUM 4.3 mmol/L (3.5-5.1); TOTAL PROTEIN 6.8 g/dL (6.5-8.1)
[2024-05-15] MEDS: ALBUTEROL/IPRATROPIUM 3 ML NEB NEB PRN (14:28)
[2024-05-16] VITALS (11 sets, daily range): BP systolic 140–179; BP diastolic 31–71; PULSE 65–94; RESP 16–20; TEMP 97–98.6; O2SAT 97–100
[2024-05-16 07:17] LABS: ALBUMIN/GLOBULIN RATIO 0.9 (0.8-2.0); BILIRUBIN,TOTAL 0.4 mg/dL (0.2-1.2); CALCIUM 9.8 mg/dL (8.4-10.2); CREATININE, SERUM 1.02 mg/dL (0.57-1.11); TOTAL PROTEIN 6.5 g/dL (6.5-8.1)
[2024-05-17 04:18] VITALS: BP 150/70; PULSE 83; RESP 18; TEMP 97.6; O2SAT 98
[2024-05-17 06:20] VITALS: PULSE 82; RESP 20; O2SAT 95
[2024-05-17 07:13] LABS: ANION GAP 15.8 mmol/L (8-16); CALCIUM 9.8 mg/dL (8.4-10.2); CREATININE, SERUM 1.08 mg/dL (0.57-1.11); POTASSIUM 3.8 mmol/L (3.5-5.1)
[2024-05-17 08:25] VITALS: BP 161/74; PULSE 85; RESP 20; TEMP 98.1; O2SAT 97
[2024-05-17] MEDS: ONDANSETRON HCL INJ 2MG/ML 2ML 2 MG/ML VIAL IV PRN (09:47)
[2024-05-17 09:50] VITALS: BP 161/74; PULSE 85; RESP 20; TEMP 98.1; O2SAT 97
[2024-05-17 12:35] VITALS: BP 131/54; PULSE 80; RESP 20; TEMP 98; O2SAT 99
[2024-05-17 16:54] VITALS: BP 147/60; PULSE 80; RESP 20; TEMP 97.7; O2SAT 100
[2024-05-17] MEDS: METOPROLOL SUCCINATE 25 MG TAB XL PO SCH (23:15)
[2024-05-18 02:25] VITALS: BP 126/63; PULSE 64; RESP 18; TEMP 97.6; O2SAT 99
[2024-05-18 07:50] VITALS: BP 150/54; PULSE 70; RESP 18; TEMP 98.1; O2SAT 98
[2024-05-18 08:07] VITALS: PULSE 65; RESP 20; O2SAT 98
[2024-05-18 08:29] LABS: ANION GAP 16.4 mmol/L (8-16); CALCIUM 9.6 mg/dL (8.4-10.2); CREATININE, SERUM 1.36 mg/dL (0.57-1.11); POTASSIUM 4.4 mmol/L (3.5-5.1)
[2024-05-18] MEDS ORDERED: TOPROL XL25 MG PO (10:30)
[2024-05-18 12:07] VITALS: BP 156/65; PULSE 71; RESP 18; TEMP 98.3; O2SAT 100
[2024-05-18] MEDS ORDERED: ONDANSETRON HCL 4 MG ORAL DISINTEGRATING TAB PO PRN (14:00)
[2024-05-18 15:15] VITALS: BP 158/62; PULSE 74; RESP 19; TEMP 98.5; O2SAT 100
== END 2024-05-18 16:45 | disposition home health service (06) | DRG 660 ==
LOC: ER 08:38 → ERHOLD 11:22 → MED/SURG3 16:40
PROVIDERS: ADMIT Internal Medicine; ATTEND Internal Medicine
PROC: 0UJH7ZZ Inspection of Vagina and Cul-de-sac, Via Natural or Artificial Opening (ICD-10-PCS; 2024-05-12)
PROC: 0T768DZ Dilation of Right Ureter with Intraluminal Device, Via Natural or Artificial Opening Endoscopic (ICD-10-PCS; principal; 2024-05-12 14:39)
PROC: BT141ZZ Fluoroscopy of Kidneys, Ureters and Bladder using Low Osmolar Contrast (ICD-10-PCS; 2024-05-12 14:39)
DX: N13.6 Pyonephrosis (principal); A04.9 Bacterial intestinal infection, unspecified; Z16.12 Extended spectrum beta lactamase (ESBL) resistance; Z16.24 Resistance to multiple antibiotics; N17.9 Acute kidney failure, unspecified; E86.0 Dehydration; E83.42 Hypomagnesemia; E11.22 Type 2 diabetes mellitus with diabetic chronic kidney disease; I12.9 Hypertensive chronic kidney disease with stage 1 through stage 4 chronic kidney disease, or unspecified chronic kidney disease; N18.32 Chronic kidney disease, stage 3b; K80.20 Calculus of gallbladder without cholecystitis without obstruction; B96.1 Klebsiella pneumoniae [K. pneumoniae] as the cause of diseases classified elsewhere; R31.9 Hematuria, unspecified; F41.9 Anxiety disorder, unspecified; K21.9 Gastro-esophageal reflux disease without esophagitis; F32.A Depression, unspecified; E66.9 Obesity, unspecified; Z68.37 Body mass index [BMI] 37.0-37.9, adult; M79.7 Fibromyalgia; Z79.02 Long term (current) use of antithrombotics/antiplatelets; Z79.4 Long term (current) use of insulin; Z79.84 Long term (current) use of oral hypoglycemic drugs; Z86.73 Personal history of transient ischemic attack (TIA), and cerebral infarction without residual deficits; Z90.710 Acquired absence of both cervix and uterus; Z88.0 Allergy status to penicillin; Z88.1 Allergy status to other antibiotic agents; Z88.5 Allergy status to narcotic agent; Z88.6 Allergy status to analgesic agent; Z88.8 Allergy status to other drugs, medicaments and biological substances; Z91.018 Allergy to other foods; F17.210 Nicotine dependence, cigarettes, uncomplicated; N81.10 Cystocele, unspecified; N81.6 Rectocele; N95.2 Postmenopausal atrophic vaginitis
CPT/HCPCS: 36415; 51701; 74176; 74420; 80048; 80053; 81001; 82948; 83735; 84484; 85025; 85610; 85730; 87086; 87186; 93005; 94799; 99252; 99284; C1769; C2617; J1100; J1644; J2003; J2185; J2405; J2470; J3475; J7030; J7040; J7050

== ENCOUNTER 2024-08-07 20:37 | Inpatient (IN) | payer MEDICARE ==
[~2024-08-07] VITALS: Ht 152.4 cm; Wt 83.5 kg
[~2024-08-07 20:37] MED LIST changes: +HYDROCHLOROTHIA25 MG PO; +PROTONIX20 MG PO; +TOPROL XL25 MG PO
[2024-08-07 22:16] LABS: BILIRUBIN,URINE NEGATIVE (NEGATIVE); CLARITY,URINE CLOUDY (CLEAR); COLOR,URINE STRAW (YELLOW); GLUCOSE, URINE NEGATIVE (NEGATIVE); KETONES,URINE NEGATIVE (NEGATIVE); LEUKOCYTE ESTERASE ,URINE 2+ (NEGATIVE); NITRITE,URINE NEGATIVE (NEGATIVE); PH,URINE 5.5 (5 - 7); PROTEIN,URINE DIPSTICK >=300 (NEGATIVE); URINE UROBILINOGEN 0.2 mg/dL (0.2 - 1)
[2024-08-07 22:21] LABS: BACTERIA,URINE MANY /HPF; EPITHELIAL CELLS,URINE FEW /LPF; RBC,URINE >50 /HPF (0-5); WBC,URINE (MAN) >50 /HPF (0-5)
[2024-08-07 23:08] LABS: BASOPHILS % 0.5 % (0.0-1.0); EOSINOPHILS # (AUTO) 0.3 (0.0-0.4); EOSINOPHILS % 4.5 % (0.0-6.0); HEMATOCRIT 29.2 % (34.2-44.1); HEMOGLOBIN 9.1 g/dL (12.0-16.0); LYMPHOCYTES % 15.6 % (18.0-39.1); MEAN CORPUSCULAR HEMOGLOBIN 28.6 pg (28-32); MEAN CORPUSCULAR HGB CONC 31.2 g/dL (31-35); MEAN CORPUSCULAR VOLUME 91.8 fL (81-99); MONOCYTES # (AUTO) 0.7 (0.2-0.8); MONOCYTES % 10.5 % (4.4-11.3); NEUTROPHILS # (AUTO) 4.5 (2.1-6.9); NEUTROPHILS % 68.1 % (38.7-80.0); PLATELET COUNT 253 x10e3/uL (140-360); RED BLOOD COUNT 3.18 x10e6/uL (3.6-5.1); RED CELL DISTRIBUTION WIDTH 15.7 % (11.7-14.4)
[2024-08-07] MEDS: MEROPENEM 1 GM in SODIUM CHLORIDE 0.9% 100 ML IV SCH (23:21)
[2024-08-07 23:29] LABS: ALBUMIN 3.2 g/dL (3.5-5.0); ALBUMIN/GLOBULIN RATIO 0.8 (0.8-2.0); ANION GAP 19.8 mmol/L (8-16); BILIRUBIN,TOTAL 0.3 mg/dL (0.2-1.2); CALCIUM 9.7 mg/dL (8.4-10.2); CREATININE, SERUM 2.38 mg/dL (0.57-1.11); POTASSIUM 3.8 mmol/L (3.5-5.1); TOTAL PROTEIN 7.3 g/dL (6.5-8.1)
[2024-08-07] MEDS ORDERED: ONDANSETRON HCL INJ 2MG/ML 2ML 2 MG/ML VIAL IV PRN (23:30)
[2024-08-07 23:48] VITALS: PULSE 69; RESP 19; TEMP 98.6
[2024-08-08] VITALS (12 sets, daily range): BP systolic 140–167; BP diastolic 53–74; PULSE 58–85; RESP 18–20; TEMP 97.6–98.9; O2SAT 96–100
[2024-08-08] MEDS: SODIUM CHLORIDE 0.9% 1000ML 1,000 ML IV ONE (01:11)
[2024-08-08 07:58] LABS: BASOPHILS # (AUTO) 0.1 (0.0-0.1); BASOPHILS % 0.5 % (0.0-1.0); EOSINOPHILS # (AUTO) 0.3 (0.0-0.4); EOSINOPHILS % 3.3 % (0.0-6.0); HEMATOCRIT 36.1 % (34.2-44.1); HEMOGLOBIN 10.6 g/dL (12.0-16.0); LYMPHOCYTES # (AUTO) 0.7 (1.0-3.2); LYMPHOCYTES % 7.1 % (18.0-39.1); MEAN CORPUSCULAR HEMOGLOBIN 28.6 pg (28-32); MEAN CORPUSCULAR HGB CONC 29.4 g/dL (31-35); MEAN CORPUSCULAR VOLUME 97.3 fL (81-99); MONOCYTES # (AUTO) 0.7 (0.2-0.8); MONOCYTES % 7.2 % (4.4-11.3); NEUTROPHILS # (AUTO) 8.1 (2.1-6.9); NEUTROPHILS % 81.3 % (38.7-80.0); PLATELET COUNT 218 x10e3/uL (140-360); RED BLOOD COUNT 3.71 x10e6/uL (3.6-5.1); RED CELL DISTRIBUTION WIDTH 15.5 % (11.7-14.4); WHITE BLOOD COUNT 9.95 x10e3/uL (4.8-10.8)
[2024-08-08] MEDS ORDERED: DEXTROSE 50% SYRINGE 50 ML IV PRN (08:15)
[2024-08-08 08:28] LABS: ALBUMIN 3.1 g/dL (3.5-5.0); ALBUMIN/GLOBULIN RATIO 0.7 (0.8-2.0); ANION GAP 18.5 mmol/L (8-16); BILIRUBIN,TOTAL 0.3 mg/dL (0.2-1.2); CALCIUM 9.9 mg/dL (8.4-10.2); CREATININE, SERUM 1.95 mg/dL (0.57-1.11); POTASSIUM 3.5 mmol/L (3.5-5.1); TOTAL PROTEIN 7.3 g/dL (6.5-8.1)
[2024-08-08] MEDS: LORATADINE 10 MG TAB PO SCH (08:53)
[2024-08-08] MEDS: DULOXETINE HCL 30 MG DELAYED RELEASE PO SCH (08:54)
[2024-08-08] MEDS: FAMOTIDINE 20 MG TAB PO SCH (08:54)
[2024-08-08] MEDS: ALLOPURINOL 100 MG TAB PO SCH (08:55)
[2024-08-08] MEDS: CLOPIDOGREL BISULFATE 75 MG TAB PO SCH (08:55)
[2024-08-08] MEDS: METOPROLOL SUCCINATE 50 MG TAB XL PO SCH (08:55)
[2024-08-08] MEDS: PANTOPRAZOLE SOD 40 MG TABEC PO SCH (08:55)
[2024-08-08] MEDS: NON-FORMULARY MEDICATION (Mirabegron (Myrbetriq) 50 MG) PO SCH (08:56)
[2024-08-08] MEDS ORDERED: TRAMADOL HCL 50 MG TAB PO SCH (09:00)
[2024-08-08] MEDS ORDERED: TRAMADOL HCL 50 MG TAB PO PRN (09:00)
[2024-08-08] MEDS: INSULIN GLARGINE 100 UNITS/ML VIAL SQ ONE (09:06)
[2024-08-08] MEDS: INSULIN LISPRO 100 UNIT/1 ML 3ML VIAL SQ SCH (12:28)
[2024-08-08] MEDS: ENOXAPARIN SOD INJ 40 MG/0.4 ML SYR SC SCH (16:38)
[2024-08-08] MEDS: INSULIN DEGLUDEC 35 UNIT SQ SCH (21:34)
[2024-08-08] MEDS: AMLODIPINE BESYLATE 10 MG TAB PO SCH (21:36)
[2024-08-08] MEDS: ATORVASTATIN 40 MG TAB PO SCH (21:37)
[2024-08-09] VITALS (9 sets, daily range): BP systolic 128–165; BP diastolic 50–87; PULSE 68–88; RESP 18–20; TEMP 97.3–98.3; O2SAT 95–100
[2024-08-09] MEDS: ACETAMINOPHEN 325 MG TAB PO PRN (03:41)
[2024-08-09 05:18] LABS: BASOPHILS % 0.3 % (0.0-1.0); EOSINOPHILS # (AUTO) 0.3 (0.0-0.4); EOSINOPHILS % 4.5 % (0.0-6.0); HEMATOCRIT 28.6 % (34.2-44.1); HEMOGLOBIN 8.8 g/dL (12.0-16.0); LYMPHOCYTES # (AUTO) 0.8 (1.0-3.2); LYMPHOCYTES % 11.5 % (18.0-39.1); MEAN CORPUSCULAR HEMOGLOBIN 28.2 pg (28-32); MEAN CORPUSCULAR HGB CONC 30.8 g/dL (31-35); MEAN CORPUSCULAR VOLUME 91.7 fL (81-99); MONOCYTES # (AUTO) 0.5 (0.2-0.8); MONOCYTES % 7.2 % (4.4-11.3); NEUTROPHILS # (AUTO) 5.3 (2.1-6.9); NEUTROPHILS % 75.8 % (38.7-80.0); PLATELET COUNT 212 x10e3/uL (140-360); RED BLOOD COUNT 3.12 x10e6/uL (3.6-5.1); RED CELL DISTRIBUTION WIDTH 15.6 % (11.7-14.4); WHITE BLOOD COUNT 6.96 x10e3/uL (4.8-10.8)
[2024-08-09 06:06] LABS: ANION GAP 17.6 mmol/L (8-16); CALCIUM 9.4 mg/dL (8.4-10.2); CREATININE, SERUM 1.78 mg/dL (0.57-1.11); POTASSIUM 3.6 mmol/L (3.5-5.1)
[2024-08-09] MEDS: FAMOTIDINE 20 MG TAB PO SCH (08:43)
[2024-08-10] VITALS (7 sets, daily range): BP systolic 132–158; BP diastolic 42–84; PULSE 67–96; RESP 17–20; TEMP 97.3–98.3; O2SAT 95–100
[2024-08-10] MEDS: ENOXAPARIN 30 MG/0.3 ML SYR SC SCH (17:18)
[2024-08-10] MEDS: SODIUM CHLORIDE 0.9% 250ML 250 ML ONE (21:24)
[2024-08-11] VITALS (10 sets, daily range): BP systolic 112–170; BP diastolic 53–80; PULSE 57–80; RESP 16–20; TEMP 97–98.7; O2SAT 95–100
[2024-08-11 06:02] LABS: ANION GAP 17.8 mmol/L (8-16); CREATININE, SERUM 1.57 mg/dL (0.57-1.11); POTASSIUM 3.8 mmol/L (3.5-5.1)
[2024-08-11] MEDS: HYDRALAZINE HCL 25 MG TAB PO PRN (12:35)
[2024-08-11] MEDS ORDERED: LIDOCAINE HCL 2% LOCAL INJ 5 ML SDV VIAL INJ ONE (15:50)
[2024-08-11] MEDS ORDERED: PROPOFOL IV EMULSION 10 MG/ML 20 ML VIAL ONE (15:50)
[2024-08-11] MEDS ORDERED: FENTANYL CITRATE/PF 100MCG/2 ML INJ ONE (15:50)
[2024-08-11] MEDS: DOCUSATE SODIUM 100 MG CAP PO SCH (17:00)
[2024-08-11] MEDS: SENNOSIDES 8.6 MG TAB PO SCH (17:00)
[2024-08-11] MEDS ORDERED: SENNA-S TABLET PO SCH (17:00)
[2024-08-12] VITALS (7 sets, daily range): BP systolic 129–156; BP diastolic 45–62; PULSE 66–83; RESP 17–18; TEMP 97.6–98.6; O2SAT 95–100
[2024-08-12 08:40] LABS: BASOPHILS % 0.4 % (0.0-1.0); EOSINOPHILS # (AUTO) 0.4 (0.0-0.4); EOSINOPHILS % 4.6 % (0.0-6.0); HEMATOCRIT 31.1 % (34.2-44.1); HEMOGLOBIN 9.7 g/dL (12.0-16.0); LYMPHOCYTES # (AUTO) 1.3 (1.0-3.2); LYMPHOCYTES % 15.2 % (18.0-39.1); MEAN CORPUSCULAR HEMOGLOBIN 28.4 pg (28-32); MEAN CORPUSCULAR HGB CONC 31.2 g/dL (31-35); MEAN CORPUSCULAR VOLUME 90.9 fL (81-99); MONOCYTES # (AUTO) 0.6 (0.2-0.8); MONOCYTES % 6.7 % (4.4-11.3); NEUTROPHILS # (AUTO) 5.9 (2.1-6.9); PLATELET COUNT 224 x10e3/uL (140-360); RED BLOOD COUNT 3.42 x10e6/uL (3.6-5.1); RED CELL DISTRIBUTION WIDTH 15.6 % (11.7-14.4); WHITE BLOOD COUNT 8.24 x10e3/uL (4.8-10.8)
[2024-08-12 08:58] LABS: ANION GAP 16.4 mmol/L (8-16); CALCIUM 10.1 mg/dL (8.4-10.2); CREATININE, SERUM 1.42 mg/dL (0.57-1.11); POTASSIUM 4.4 mmol/L (3.5-5.1)
[2024-08-13] VITALS (7 sets, daily range): BP systolic 141–160; BP diastolic 56–75; PULSE 72–93; RESP 16–18; TEMP 97.6–98.6; O2SAT 97–100
[2024-08-13] MEDS: TRAMADOL HCL 50 MG TAB PO PRN (21:47)
[2024-08-14] VITALS (7 sets, daily range): BP systolic 145–159; BP diastolic 48–63; PULSE 57–80; RESP 17–19; TEMP 97.8–98.3; O2SAT 97–100
[2024-08-14] MEDS: METOPROLOL SUCCINATE 25 MG TAB XL PO SCH (08:52)
[2024-08-15] VITALS: BP 159/62; PULSE 58; RESP 17; TEMP 98.2; O2SAT 97
[2024-08-15 04:00] VITALS: BP 144/48; PULSE 62; RESP 20; TEMP 98; O2SAT 100
[2024-08-15 08:00] VITALS: BP 164/65; PULSE 66; RESP 17; TEMP 98.3; O2SAT 98
[2024-08-15 08:40] VITALS: BP 164/65; PULSE 66; RESP 20; TEMP 98; O2SAT 100
[2024-08-15] MEDS: HYDRALAZINE HCL 25 MG TAB PO SCH (10:52)
[2024-08-15 12:00] VITALS: BP 144/60; PULSE 71; RESP 21; TEMP 98.8; O2SAT 100
== END 2024-08-15 16:40 | DRG 660 ==
LOC: ER 21:24 → ERHOLD 23:16 → MED/SURG 08-08 00:45
PROVIDERS: ADMIT Internal Medicine; ATTEND Internal Medicine
PROC: 0TP98DZ Removal of Intraluminal Device from Ureter, Via Natural or Artificial Opening Endoscopic (ICD-10-PCS; 2024-08-11)
PROC: 0UJH7ZZ Inspection of Vagina and Cul-de-sac, Via Natural or Artificial Opening (ICD-10-PCS; 2024-08-11)
PROC: BT1D1ZZ Fluoroscopy of Right Kidney, Ureter and Bladder using Low Osmolar Contrast (ICD-10-PCS; 2024-08-11)
PROC: 0T768DZ Dilation of Right Ureter with Intraluminal Device, Via Natural or Artificial Opening Endoscopic (ICD-10-PCS; principal; 2024-08-11 15:49)
PROC: 0T768DZ Dilation of Right Ureter with Intraluminal Device, Via Natural or Artificial Opening Endoscopic (ICD-10-PCS; 2024-08-11 15:49)
DX: N30.21 Other chronic cystitis with hematuria (principal); I13.0 Hypertensive heart and chronic kidney disease with heart failure and stage 1 through stage 4 chronic kidney disease, or unspecified chronic kidney disease; I50.32 Chronic diastolic (congestive) heart failure; Z16.12 Extended spectrum beta lactamase (ESBL) resistance; Z16.24 Resistance to multiple antibiotics; N13.1 Hydronephrosis with ureteral stricture, not elsewhere classified; N36.8 Other specified disorders of urethra; Z46.6 Encounter for fitting and adjustment of urinary device; E86.0 Dehydration; B95.2 Enterococcus as the cause of diseases classified elsewhere; B96.1 Klebsiella pneumoniae [K. pneumoniae] as the cause of diseases classified elsewhere; N81.10 Cystocele, unspecified; N81.6 Rectocele; N95.2 Postmenopausal atrophic vaginitis; E11.22 Type 2 diabetes mellitus with diabetic chronic kidney disease; N18.30 Chronic kidney disease, stage 3 unspecified; E11.42 Type 2 diabetes mellitus with diabetic polyneuropathy; Z79.4 Long term (current) use of insulin; M10.9 Gout, unspecified; E66.01 Morbid (severe) obesity due to excess calories; Z71.3 Dietary counseling and surveillance; Z68.35 Body mass index [BMI] 35.0-35.9, adult; M79.7 Fibromyalgia; Z71.81 Spiritual or religious counseling; Z86.73 Personal history of transient ischemic attack (TIA), and cerebral infarction without residual deficits; Z22.8 Carrier of other infectious diseases; Z79.899 Other long term (current) drug therapy
CPT/HCPCS: 36415; 74176; 74420; 80048; 80053; 81001; 82948; 85025; 87040; 87086; 87186; 94799; 96372; 99252; 99283; C1758; C1769; C2617; J1650; J1815; J2003; J2185; J2470; J7030; J7050

== ENCOUNTER 2024-08-26 22:37 | Emergency (ER) | payer MEDICARE ==
[~2024-08-26] VITALS: Ht 152.4 cm; Wt 88.5 kg
[2024-08-26 22:43] VITALS: PULSE 61; RESP 18; TEMP 99
[2024-08-26 23:22] LABS: BASOPHILS % 0.9 % (0.0-1.0); EOSINOPHILS # (AUTO) 0.4 (0.0-0.4); EOSINOPHILS % 8.2 % (0.0-6.0); HEMATOCRIT 32.6 % (34.2-44.1); HEMOGLOBIN 10.1 g/dL (12.0-16.0); LYMPHOCYTES # (AUTO) 0.8 (1.0-3.2); LYMPHOCYTES % 17.8 % (18.0-39.1); MEAN CORPUSCULAR HEMOGLOBIN 28.6 pg (28-32); MEAN CORPUSCULAR VOLUME 92.4 fL (81-99); MONOCYTES # (AUTO) 0.3 (0.2-0.8); MONOCYTES % 6.7 % (4.4-11.3); NEUTROPHILS # (AUTO) 3.1 (2.1-6.9); PLATELET COUNT 272 x10e3/uL (140-360); RED BLOOD COUNT 3.53 x10e6/uL (3.6-5.1); RED CELL DISTRIBUTION WIDTH 15.9 % (11.7-14.4); WHITE BLOOD COUNT 4.65 x10e3/uL (4.8-10.8)
[2024-08-26 23:31] LABS: ANION GAP 19.4 mmol/L (8-16); CALCIUM 9.8 mg/dL (8.4-10.2); CREATININE, SERUM 1.72 mg/dL (0.57-1.11); POTASSIUM 4.4 mmol/L (3.5-5.1)
[2024-08-26 23:45] LABS: CLARITY,URINE CLOUDY (CLEAR); COLOR,URINE AMBER (YELLOW)
[2024-08-26 23:46] LABS: BILIRUBIN,URINE 1+ (NEGATIVE); GLUCOSE, URINE 1+ (NEGATIVE); KETONES,URINE NEGATIVE (NEGATIVE); LEUKOCYTE ESTERASE ,URINE LARGE (NEGATIVE); NITRITE,URINE NEGATIVE (NEGATIVE); PH,URINE 5.5 (5 - 7); PROTEIN,URINE DIPSTICK >=300 (NEGATIVE); URINE UROBILINOGEN 0.2 mg/dL (0.2 - 1)
[2024-08-26 23:56] LABS: BACTERIA,URINE MANY /HPF; EPITHELIAL CELLS,URINE FEW /LPF; RBC,URINE >50 /HPF (0-5); TRANSITIONAL EPI CELLS,URINE FEW; WBC,URINE (MAN) >50 /HPF (0-5)
[2024-08-26] MEDS: INSULIN REGULAR, HUMAN 100 UNIT/1 ML SQ ONE (23:57)
[2024-08-27] MEDS ORDERED: MACROBID 100 M100 MG PO (00:03)
[2024-08-27] MEDS: NITROFURANTOIN MACROCRYSTALS 100 MG CAP PO ONE (00:30)
[2024-08-27 00:51] VITALS: BP 154/64; O2SAT 98
== END 2024-08-27 00:54 | disposition home or self-care (01) ==
LOC: ER 22:43
DX: Z46.6 Encounter for fitting and adjustment of urinary device (principal); N39.0 Urinary tract infection, site not specified; R31.9 Hematuria, unspecified; I12.9 Hypertensive chronic kidney disease with stage 1 through stage 4 chronic kidney disease, or unspecified chronic kidney disease; E11.22 Type 2 diabetes mellitus with diabetic chronic kidney disease; E11.65 Type 2 diabetes mellitus with hyperglycemia; N18.9 Chronic kidney disease, unspecified; I50.9 Heart failure, unspecified; K21.9 Gastro-esophageal reflux disease without esophagitis; F32.A Depression, unspecified; Z86.73 Personal history of transient ischemic attack (TIA), and cerebral infarction without residual deficits
CPT/HCPCS: 36415; 80048; 81001; 85025; 87086; 87186; 99284

== ENCOUNTER 2024-10-10 11:35 | Emergency (ER) | payer MEDICARE ==
[~2024-10-10] VITALS: Ht 304.8 cm; Wt 88.5 kg
[~2024-10-10 11:35] MED LIST changes: +MACROBID 100 M100 MG PO
[2024-10-10 11:49] VITALS: TEMP 98.2
[2024-10-10 12:30] VITALS: PULSE 58; RESP 18; O2SAT 100
== END 2024-10-10 13:35 | disposition home or self-care (01) ==
LOC: ER 12:02
DX: R60.9 Edema, unspecified (principal); I12.9 Hypertensive chronic kidney disease with stage 1 through stage 4 chronic kidney disease, or unspecified chronic kidney disease; E11.22 Type 2 diabetes mellitus with diabetic chronic kidney disease; N18.30 Chronic kidney disease, stage 3 unspecified; E11.40 Type 2 diabetes mellitus with diabetic neuropathy, unspecified; I50.9 Heart failure, unspecified; E78.5 Hyperlipidemia, unspecified; M79.7 Fibromyalgia; K21.9 Gastro-esophageal reflux disease without esophagitis; F32.A Depression, unspecified; Z86.73 Personal history of transient ischemic attack (TIA), and cerebral infarction without residual deficits
CPT/HCPCS: 93971; 99284

== ENCOUNTER → 2024-10-19 | Outpatient (REF) | payer MEDICARE ==
[~2024-10-19] MED LIST changes: +FUROSEMIDE INJ 10 MG/ML 4 ML VIAL ONE
== END ==
LOC: NM 13:02
PROVIDERS: ATTEND Urology
DX: N13.0 Hydronephrosis with ureteropelvic junction obstruction (principal); N13.5 Crossing vessel and stricture of ureter without hydronephrosis
CPT/HCPCS: 78708; A9562; J1938

== ENCOUNTER 2024-11-13 12:00 | Inpatient (IN) | payer MEDICARE ==
[2024-11-06 13:44] LABS: BASOPHILS % 0.5 % (0.0-1.0); EOSINOPHILS % 4.4 % (0.0-6.0); LYMPHOCYTES % 15.3 % (18.0-39.1); MONOCYTES % 6.7 % (4.4-11.3); NEUTROPHILS % 72.7 % (38.7-80.0); RED CELL DISTRIBUTION WIDTH 16.3 % (11.7-14.4)
[2024-11-06 14:53] LABS: EST GLOMERULAR FILTRATION RATE 25.0 ML/MIN (>=60)
[~2024-11-13] VITALS: Ht 152.4 cm; Wt 84.3 kg
[~2024-11-13 12:00] MED LIST changes: +CIPRO500 MG PO; -FUROSEMIDE INJ 10 MG/ML 4 ML VIAL ONE; +VESICARE5 MG PO
[2024-11-13] MEDS: MEROPENEM 1 GM VIAL ONE (12:46)
[2024-11-13] MEDS: SODIUM CHLORIDE 0.9% 1000ML 1,000 ML ONE (12:47)
[2024-11-13] MEDS ORDERED: LIDOCAINE HCL 2% LOCAL INJ 5 ML SDV VIAL INJ ONE (14:16)
[2024-11-13] MEDS ORDERED: ROCURONIUM BROMIDE 1 ML IV ONE ×2 (14:16→15:27)
[2024-11-13] MEDS ORDERED: PROPOFOL IV EMULSION 10 MG/ML 20 ML VIAL ONE (14:16)
[2024-11-13] MEDS ORDERED: FENTANYL CITRATE/PF 100MCG/2 ML INJ ONE (14:16)
[2024-11-13] MEDS ORDERED: ONDANSETRON HCL INJ 2MG/ML 2ML 2 MG/ML VIAL ONE (15:03)
[2024-11-13] MEDS ORDERED: METOCLOPRAMIDE HCL 10 MG/2ML VIAL ONE (15:03)
[2024-11-13] MEDS ORDERED: PHENYLEPHRINE HCL 1% 10 MG/ML VIAL ONE (15:06)
[2024-11-13] MEDS ORDERED: ACETAMINOPHEN 1000 MG/100 ML 100 ML IV ONE (15:09)
[2024-11-13] MEDS ORDERED: HYDROMORPHONE 2MG/ML ONE (15:28)
[2024-11-13] MEDS ORDERED: SUGAMMADEX SODIUM 200 MG/2 ML VIAL IV ONE ×2 (16:37→17:06)
[2024-11-13] MEDS ORDERED: ACETAMINOPHEN 1000 MG/100 ML IV PRN (17:45)
[2024-11-13] MEDS ORDERED: NALOXONE HCL INJ 0.4 MG/ML AMP IV PRN (17:45)
[2024-11-13] MEDS ORDERED: DIPHENHYDRAMINE HCL INJ 50 MG/ML VIAL IM PRN (17:45)
[2024-11-13] MEDS: MORPHINE SULFATE 1 MG/ML 30ML PCA IV PRN (18:15)
[2024-11-13 20:18] VITALS: BP 173/89; PULSE 79; RESP 16; TEMP 98.6; O2SAT 100
[2024-11-13 21:23] VITALS: BP 173/89; PULSE 79; RESP 17; TEMP 98.6; O2SAT 100
[2024-11-13 21:33] VITALS: BP 173/89; PULSE 79; RESP 17; TEMP 98.6; O2SAT 100
[2024-11-13 21:34] VITALS: BP 173/89; PULSE 79; RESP 17; TEMP 98.6; O2SAT 100
[2024-11-13] MEDS: FLUCONAZOLE 200 MG/100 ML 100 ML IV SCH (21:57)
[2024-11-13] MEDS: SODIUM CHLORIDE 0.9% 1000ML 1,000 ML IV SCH (22:00)
[2024-11-13] MEDS: SODIUM CHLORIDE 0.9% 250ML IRRIG IR SCH (22:00)
[2024-11-13] MEDS: MEROPENEM 1 GM in SODIUM CHLORIDE 0.9% 100 ML IV SCH (23:36)
[2024-11-13 23:40] VITALS: PULSE 81; RESP 18; O2SAT 98
[2024-11-13 23:41] VITALS: BP 159/66; PULSE 81; RESP 17; TEMP 97.7; O2SAT 98
[2024-11-14] VITALS (10 sets, daily range): BP systolic 130–153; BP diastolic 46–90; PULSE 68–110; RESP 18–20; TEMP 98–99.5; O2SAT 94–99
[2024-11-14] MEDS ORDERED: BENZONATATE 100 MG CAP PO PRN (00:15)
[2024-11-14] MEDS ORDERED: ALBUTEROL/IPRATROPIUM 3 ML NEB NEB PRN (00:15)
[2024-11-14] MEDS ORDERED: SIMETHICONE 80 MG CHEW PO PRN (00:15)
[2024-11-14] MEDS ORDERED: POTASSIUM CHLORIDE 20 MEQ TAB CR PO PRN (00:15)
[2024-11-14] MEDS ORDERED: DOCUSATE SODIUM 100 MG CAP PO PRN (00:15)
[2024-11-14] MEDS ORDERED: DEXTROSE 50% SYRINGE 50 ML IV PRN ×2 (00:15)
[2024-11-14] MEDS ORDERED: DIPHENHYDRAMINE HCL 25 MG CAP PO PRN (00:15)
[2024-11-14] MEDS ORDERED: MELATONIN 5 MG TABLET PO PRN (00:15)
[2024-11-14] MEDS ORDERED: ONDANSETRON HCL INJ 2MG/ML 2ML 2 MG/ML VIAL IV PRN (00:15)
[2024-11-14] MEDS ORDERED: HYDRALAZINE HCL 20 MG/ML VIAL IV PRN (00:15)
[2024-11-14 04:51] LABS: BASOPHILS % 0.2 % (0.0-1.0); EOSINOPHILS % 0.0 % (0.0-6.0); LYMPHOCYTES % 4.0 % (18.0-39.1); MONOCYTES % 5.1 % (4.4-11.3); NEUTROPHILS % 90.4 % (38.7-80.0); RED CELL DISTRIBUTION WIDTH 15.9 % (11.7-14.4)
[2024-11-14 05:19] LABS: EST GLOMERULAR FILTRATION RATE 29.0 ML/MIN (>=60)
[2024-11-14] MEDS: INSULIN LISPRO 100 UNIT/1 ML 3ML VIAL SQ SCH (07:30)
[2024-11-14] MEDS: PANTOPRAZOLE SOD 40 MG TABEC PO SCH (07:30)
[2024-11-14] MEDS: DULOXETINE HCL 30 MG DELAYED RELEASE PO SCH (08:03)
[2024-11-14] MEDS: METOPROLOL SUCCINATE 50 MG TAB XL PO SCH (08:03)
[2024-11-14] MEDS: ALLOPURINOL 100 MG TAB PO SCH (08:03)
[2024-11-14] MEDS: INSULIN DEGLUDEC 35 UNIT SQ SCH (08:03)
[2024-11-14] MEDS: ONDANSETRON HCL INJ 2MG/ML 2ML 2 MG/ML VIAL IV PRN (08:25)
[2024-11-15] VITALS (11 sets, daily range): BP systolic 142–164; BP diastolic 54–88; PULSE 82–120; RESP 18–22; TEMP 98.9–99.1; O2SAT 98–100
[2024-11-15] MEDS: AMLODIPINE BESYLATE 10 MG TAB PO SCH (00:10)
[2024-11-15 05:28] LABS: BASOPHILS % 0.3 % (0.0-1.0); EOSINOPHILS % 0.8 % (0.0-6.0); LYMPHOCYTES % 9.7 % (18.0-39.1); MONOCYTES % 7.7 % (4.4-11.3); NEUTROPHILS % 81.1 % (38.7-80.0); RED CELL DISTRIBUTION WIDTH 16.4 % (11.7-14.4)
[2024-11-15 06:19] LABS: EST GLOMERULAR FILTRATION RATE 40.0 ML/MIN (>=60)
[2024-11-15] MEDS: BISACODYL 10 MG SUPP PR ONE (14:53)
[2024-11-15] MEDS ORDERED: ENOXAPARIN SOD INJ 40 MG/0.4 ML SYR SC SCH (17:00)
[2024-11-16] VITALS (13 sets, daily range): BP systolic 149–168; BP diastolic 50–68; PULSE 66–112; RESP 16–20; TEMP 98.1–99.1; O2SAT 96–100
[2024-11-16 05:06] LABS: BASOPHILS % 0.2 % (0.0-1.0); EOSINOPHILS % 1.8 % (0.0-6.0); LYMPHOCYTES % 9.3 % (18.0-39.1); MONOCYTES % 6.6 % (4.4-11.3); NEUTROPHILS % 81.8 % (38.7-80.0); RED CELL DISTRIBUTION WIDTH 15.9 % (11.7-14.4)
[2024-11-16 05:35] LABS: EST GLOMERULAR FILTRATION RATE 51.0 ML/MIN (>=60)
[2024-11-16] MEDS: LIDOCAINE 4% PATCH TP PRN (11:39)
[2024-11-16] MEDS: ACETAMINOPHEN 325 MG TAB PO PRN (11:40)
[2024-11-17] VITALS (8 sets, daily range): BP systolic 143–158; BP diastolic 54–61; PULSE 69–85; RESP 18; TEMP 97.5–99.8; O2SAT 93–100
[2024-11-17] MEDS: TRAMADOL HCL 50 MG TAB PO PRN (02:45)
[2024-11-17 05:59] LABS: BASOPHILS % 0.6 % (0.0-1.0); EOSINOPHILS % 6.7 % (0.0-6.0); LYMPHOCYTES % 14.8 % (18.0-39.1); MONOCYTES % 6.8 % (4.4-11.3); NEUTROPHILS % 70.7 % (38.7-80.0); RED CELL DISTRIBUTION WIDTH 15.3 % (11.7-14.4)
[2024-11-17 06:25] LABS: EST GLOMERULAR FILTRATION RATE 58.0 ML/MIN (>=60)
[2024-11-18 04:12] VITALS: BP 159/53; PULSE 82; RESP 18; TEMP 97.9; O2SAT 96
[2024-11-18 06:46] VITALS: PULSE 74; RESP 20; O2SAT 95
[2024-11-18 08:45] VITALS: BP 158/61; PULSE 84; RESP 18; TEMP 98.6; O2SAT 98
[2024-11-18 09:30] VITALS: BP 158/61; PULSE 84; RESP 18; TEMP 98.6; O2SAT 98
[2024-11-18 17:43] VITALS: BP 160/52; PULSE 86
[2024-11-19] MEDS ORDERED: CEFTRIAXONE 2 GM in SODIUM CHLORIDE 0.9% 100 ML IV SCH (09:00)
== END 2024-11-18 18:20 | DRG 660 ==
LOC: OR 12:00 → UNDOADMIN 15:15 → IMCU 15:15 → MED/SURG 19:13
PROVIDERS: ADMIT Internal Medicine; ATTEND Internal Medicine
PROC: 0TP90DZ Removal of Intraluminal Device from Ureter, Open Approach (ICD-10-PCS; 2024-11-13)
PROC: 0T760DZ Dilation of Right Ureter with Intraluminal Device, Open Approach (ICD-10-PCS; 2024-11-13)
PROC: 0TQ30ZZ Repair Right Kidney Pelvis, Open Approach (ICD-10-PCS; principal; 2024-11-13 14:48)
DX: N13.6 Pyonephrosis (principal); I13.0 Hypertensive heart and chronic kidney disease with heart failure and stage 1 through stage 4 chronic kidney disease, or unspecified chronic kidney disease; I50.30 Unspecified diastolic (congestive) heart failure; N17.9 Acute kidney failure, unspecified; N12 Tubulo-interstitial nephritis, not specified as acute or chronic; N18.30 Chronic kidney disease, stage 3 unspecified; E11.22 Type 2 diabetes mellitus with diabetic chronic kidney disease; N81.6 Rectocele; N81.10 Cystocele, unspecified; N95.2 Postmenopausal atrophic vaginitis; R33.9 Retention of urine, unspecified; I70.90 Unspecified atherosclerosis; B96.4 Proteus (mirabilis) (morganii) as the cause of diseases classified elsewhere; E66.01 Morbid (severe) obesity due to excess calories; E78.5 Hyperlipidemia, unspecified; Z87.440 Personal history of urinary (tract) infections; Z88.6 Allergy status to analgesic agent; Z88.1 Allergy status to other antibiotic agents; Z88.5 Allergy status to narcotic agent; Z88.0 Allergy status to penicillin; Z91.018 Allergy to other foods; Z79.02 Long term (current) use of antithrombotics/antiplatelets; Z68.36 Body mass index [BMI] 36.0-36.9, adult
CPT/HCPCS: 36415; 71045; 74018; 80048; 82948; 83735; 85025; 87086; 87186; 94799; 96372; 99252; C2617; J1171; J1450; J2003; J2185; J2270; J2371; J2405; J2470; J2765; J7030; J7050